=== PATIENT | female | born 2000 | race Caucasian/White ===

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

== ENCOUNTER 2021-09-22 18:23 | Inpatient (IN) ==
--- NOTE | 2021-09-22 18:41 | Emergency Department Note ---
Impression & Plan Depression with anxiety ADMIT ED Provider Note HPI: The patient is a 20-year-old female who presents the emergency department with a chief complaint of increasing anxiety and depression. Patient states that she did have a suicide attempt on Monday, patient states she took "a handful of my Zoloft". Patient states that she did not suffer any ill effects from this. Benjamin cheatham states she had a discussion with her boyfriend today about her depression and decided to come to the emergency department to seek help if she feels that it is getting worse. She denies any current suicidal thoughts but does admit to the suicide attempt this past Monday. On arrival here to the ED the patient is calm and cooperative, she is in no acute distress. She does also admit to some self injures behavior, states that she cuts her upper legs as a coping mechanism at times. She states she was doing this earlier today. ROS: -Psychiatric: Anxiety and depression, recent suicide attempt *10 point review systems was conducted and is otherwise negative unless stated above *Outpatient medications and allergy history reviewed PE: General: Alert, NAD HEENT: Normocephalic, atraumatic Eyes: Extraocular eye movement is intact, no scleral erythema Pulmonary: Clear to auscultation bilaterally, no wheezing Cardio: Regular rate and rhythm GI: Abdomen is soft, nontender : No suprapubic tenderness MSK: No evidence of trauma or malformation of the extremities, no edema Skin: No evidence of rash Neuro: Alert, no focal deficits Psychiatric: Cooperative Medical Decision Making: Patient presented to the emergency department with a chief complaint of increasing anxiety and depression, she states that she did have a suicide attempt several days ago. Patient was medically cleared here in the ED for psychiatric/case management assessment, patient was determined appropriate for inpatient voluntary psychiatric care to which the patient stated her preference. She was able to be placed here at this facility [facility]. Patient was transferred to [facility]. in stable condition for further management of anxiety, depression, and recent suicide attempt. Diagnosis: 1. Anxiety/depression 2. Recent suicide attempt Disposition: Admission Neno Sawyer DO Emergency Medicine Past Med/Surg History Medical History (Updated 09/23/21 @ 00:04 by Neno Sawyer DO) No chronic diseases present Surgical History (Updated 05/14/18 @ 00:20 by Keyur Shea PA-C) No significant past surgical history Social History Smoking Status: Never smoker Feels Safe at Home: Yes Allergies Allergies Allergy/AdvReac Type Severity Reaction Status Date / Time No Known Allergies Allergy Verified 09/22/21 18:50 Home Meds Home Medications Medication Instructions Recorded Confirmed sertraline 100 mg tablet 100 mg PO DAILY 09/22/21 09/22/21 Results & Data (ED) Vital Signs Vital Signs - 24 hr 09/22/21 18:27 09/22/21 20:16 Temperature 36.5 C Temperature Source Temporal Artery Scan Pulse Rate 98 H Pulse Rate [Finger] 81 Respiratory Rate 16 17 Blood Pressure 117/71 Blood Pressure [Right Arm] 133/79 Blood Pressure Mean 86 Blood Pressure Mean [Right Arm] 97 Pulse Oximetry 97 97 Oxygen Delivery Method Room Air Sepsis Recent Fever Within 48 Hours No Sepsis New/Unexplained Change in Mental Status N/A Sepsis Action Taken by Nursing No Action Required Laboratory Data Result diagrams: 09/22/21 18:45 09/22/21 18:45 Lab Results 09/22/21 09/22/21 09/22/21 Range/Units 18:45 18:45 18:45 WBC 6.90 (4.8-10.8) K/ul RBC 4.46 (3.93-5.22) M/uL Hgb 14.1 (12.0-16.0) g/dl Hct 42.4 (34.1-44.9) % MCV 95.1 (80.0-100.0) fL MCH 31.6 (25.0-34.0) pg MCHC 33.3 (32.0-36.0) g/dL RDW Std Deviation 47.2 H (36.4-46.3) fL RDW Coeff of Ronaldo 13.6 (11.5-14.5) % Plt Count 314 (130-400) K/uL MPV 9.7 (9.4-12.3) fL Immature Gran % (Auto) 0.3 % Neut % (Auto) 61.7 % Lymph % (Auto) 28.8 % [place] % (Auto) 8.1 % Eos % (Auto) 0.7 % Baso % (Auto) 0.4 % Neut # (Auto) 4.25 (1.4-6.5) K/uL Lymph # (Auto) 1.99 (1.2-3.4) K/uL [place] # (Auto) 0.56 (0.24-0.82) K/uL Eos # (Auto) 0.05 (0-0.50) K/uL Baso # (Auto) 0.03 (0-0.2) K/uL Immature Gran # (Auto) 0.02 (0.00-0.02) K/uL Sodium 141 (136-145) mmol/L Potassium 4.0 (3.5-5.1) mmol/L Chloride 105 (98-107) mmol/L Carbon Dioxide 28 (21-32) mmol/L Anion Gap 8 (3-11) BUN 12 (6-23) mg/dl Creatinine 0.80 (0.6-1.2) mg/dl Est Cr Clr Drug Dosing Not Reportable Est GFR ( Amer) 123.0 ml/min Est GFR (Non-Af Amer) 106.1 ml/min BUN/Creatinine Ratio 15.0 (10-20) Glucose 85 (70-99(Fasting)) mg/dl Calcium 9.6 (8.5-10.1) mg/dl Total Bilirubin 0.4 (0.2-1.0) mg/dl AST 13 (13-39) U/L ALT 12 (7-52) U/L Alkaline Phosphatase 58 (34-104) U/L Total Protein 7.9 (6.0-8.3) gm/dl Albumin 4.4 (3.4-5.0) gm/dl Globulin 3.5 (2.5-4.0) gm/dl Albumin/Globulin Ratio 1.3 (0.9-2) TSH 2.531 (0.300-4.500) uIu/ml Urine Color Urine Appearance (Clear) Urine pH (4.5-7.5) Ur Specific [place] (1.000-1.030) Urine Protein (Negative) Urine Glucose (UA) (Negative) Urine Ketones (Negative) Urine Blood (Negative) Urine Nitrite (Negative) Urine Bilirubin (Negative) Urine Urobilinogen (Negative) Ur Leukocyte Esterase (Negative) POC Ur Test (NEG) Salicylates (3.0-30) mg/dl Urine Opiates Screen (Neg) Ur Methadone, Qual (Neg) Acetaminophen (10-30) ug/ml Urine Barbiturates (Neg) Ur Phencyclidine (PCP) (Neg) U Amphetamin/Meth Scrn (Neg) MDMA (Ecstasy) Screen (Neg) U Benzodiazepines Scrn (Neg) Ur Cocaine Metabolite (Neg) U Marijuana (THC) Screen (Neg) Ethyl Alcohol mg/dL (<10.0) mg/dl SARS-CoV-2, RNA, NAAT (NEGATIVE) 09/22/21 09/22/21 09/22/21 Range/Units 18:45 18:45 18:47 WBC (4.8-10.8) K/ul RBC (3.93-5.22) M/uL Hgb (12.0-16.0) g/dl Hct (34.1-44.9) % MCV (80.0-100.0) fL MCH (25.0-34.0) pg MCHC (32.0-36.0) g/dL RDW Std Deviation (36.4-46.3) fL RDW Coeff of Ronaldo (11.5-14.5) % Plt Count (130-400) K/uL MPV (9.4-12.3) fL Immature Gran % (Auto) % Neut % (Auto) % Lymph % (Auto) % [place] % (Auto) % Eos % (Auto) % Baso % (Auto) % Neut # (Auto) (1.4-6.5) K/uL Lymph # (Auto) (1.2-3.4) K/uL [place] # (Auto) (0.24-0.82) K/uL Eos # (Auto) (0-0.50) K/uL Baso # (Auto) (0-0.2) K/uL Immature Gran # (Auto) (0.00-0.02) K/uL Sodium (136-145) mmol/L Potassium (3.5-5.1) mmol/L Chloride (98-107) mmol/L Carbon Dioxide (21-32) mmol/L Anion Gap (3-11) BUN (6-23) mg/dl Creatinine (0.6-1.2) mg/dl Est Cr Clr Drug Dosing Est GFR ( Amer) ml/min Est GFR (Non-Af Amer) ml/min BUN/Creatinine Ratio (10-20) Glucose (70-99(Fasting)) mg/dl Calcium (8.5-10.1) mg/dl Total Bilirubin (0.2-1.0) mg/dl AST (13-39) U/L ALT (7-52) U/L Alkaline Phosphatase (34-104) U/L Total Protein (6.0-8.3) gm/dl Albumin (3.4-5.0) gm/dl Globulin (2.5-4.0) gm/dl Albumin/Globulin Ratio (0.9-2) TSH (0.300-4.500) uIu/ml Urine Color Yellow Urine Appearance Clear (Clear) Urine pH 6.5 (4.5-7.5) Ur Specific [place] 1.024 (1.000-1.030) Urine Protein Negative (Negative) Urine Glucose (UA) Negative (Negative) Urine Ketones Negative (Negative) Urine Blood Negative (Negative) Urine Nitrite Negative (Negative) Urine Bilirubin Negative (Negative) Urine Urobilinogen Negative (Negative) Ur Leukocyte Esterase Negative (Negative) POC Ur Test (NEG) Salicylates < 3.0 L (3.0-30) mg/dl Urine Opiates Screen (Neg) Ur Methadone, Qual (Neg) Acetaminophen < 3 L (10-30) ug/ml Urine Barbiturates (Neg) Ur Phencyclidine (PCP) (Neg) U Amphetamin/Meth Scrn (Neg) MDMA (Ecstasy) Screen (Neg) U Benzodiazepines Scrn (Neg) Ur Cocaine Metabolite (Neg) U Marijuana (THC) Screen (Neg) Ethyl Alcohol mg/dL < 10.0 (<10.0) mg/dl SARS-CoV-2, RNA, NAAT (NEGATIVE) 09/22/21 09/22/21 09/22/21 Range/Units 18:47 18:47 18:47 WBC (4.8-10.8) K/ul RBC (3.93-5.22) M/uL Hgb (12.0-16.0) g/dl Hct (34.1-44.9) % MCV (80.0-100.0) fL MCH (25.0-34.0) pg MCHC (32.0-36.0) g/dL RDW Std Deviation (36.4-46.3) fL RDW Coeff of Ronaldo (11.5-14.5) % Plt Count (130-400) K/uL MPV (9.4-12.3) fL Immature Gran % (Auto) % Neut % (Auto) % Lymph % (Auto) % [place] % (Auto) % Eos % (Auto) % Baso % (Auto) % Neut # (Auto) (1.4-6.5) K/uL Lymph # (Auto) (1.2-3.4) K/uL [place] # (Auto) (0.24-0.82) K/uL Eos # (Auto) (0-0.50) K/uL Baso # (Auto) (0-0.2) K/uL Immature Gran # (Auto) (0.00-0.02) K/uL Sodium (136-145) mmol/L Potassium (3.5-5.1) mmol/L Chloride (98-107) mmol/L Carbon Dioxide (21-32) mmol/L Anion Gap (3-11) BUN (6-23) mg/dl Creatinine (0.6-1.2) mg/dl Est Cr Clr Drug Dosing Est GFR ( Amer) ml/min Est GFR (Non-Af Amer) ml/min BUN/Creatinine Ratio (10-20) Glucose (70-99(Fasting)) mg/dl Calcium (8.5-10.1) mg/dl Total Bilirubin (0.2-1.0) mg/dl AST (13-39) U/L ALT (7-52) U/L Alkaline Phosphatase (34-104) U/L Total Protein (6.0-8.3) gm/dl Albumin (3.4-5.0) gm/dl Globulin (2.5-4.0) gm/dl Albumin/Globulin Ratio (0.9-2) TSH (0.300-4.500) uIu/ml Urine Color Urine Appearance (Clear) Urine pH (4.5-7.5) Ur Specific [place] (1.000-1.030) Urine Protein (Negative) Urine Glucose (UA) (Negative) Urine Ketones (Negative) Urine Blood (Negative) Urine Nitrite (Negative) Urine Bilirubin (Negative) Urine Urobilinogen (Negative) Ur Leukocyte Esterase (Negative) POC Ur Test NEG (NEG) Salicylates (3.0-30) mg/dl Urine Opiates Screen Neg (Neg) Ur Methadone, Qual Neg (Neg) Acetaminophen (10-30) ug/ml Urine Barbiturates Neg (Neg) Ur Phencyclidine (PCP) Neg (Neg) U Amphetamin/Meth Scrn Neg (Neg) MDMA (Ecstasy) Screen Neg (Neg) U Benzodiazepines Scrn Neg (Neg) Ur Cocaine Metabolite Neg (Neg) U Marijuana (THC) Screen Neg (Neg) Ethyl Alcohol mg/dL (<10.0) mg/dl SARS-CoV-2, RNA, NAAT NEGATIVE (NEGATIVE) Discharge Plan Visit Data Chief Complaint: Mental Health Evaluation Stated Complaint: REF BY , SUICIDE, CUTTING SELF ED Provider: Neno Sawyer Discharge Problem: Depression with anxiety Patient Disposition: Admitted As Inpatient Discharge Instructions Interventions: ED Discharge Assessment Last Done: 09/22/21 22:44
[2021-09-22 18:59] LABS: Basophils # (auto) 0.03 K/uL (0-0.2); Basophils % (auto) 0.4 %; Eosinophils # (auto) 0.05 K/uL (0-0.50); Eosinophils % (auto) 0.7 %; Hematocrit (blood only) 42.4 % (34.1-44.9); Hemoglobin 14.1 g/dl (12.0-16.0); Immature Granulocytes # (auto) 0.02 K/uL (0.00-0.02); Immature Granulocytes % (auto) 0.3 %; Lymphocytes # (auto) 1.99 K/uL (1.2-3.4); Lymphocytes % (auto) 28.8 %; Mean Corpuscular Hemoglobin 31.6 pg (25.0-34.0); Mean Corpuscular Hgb Conc 33.3 g/dL (32.0-36.0); Mean Corpuscular Volume 95.1 fL (80.0-100.0); Mean Platelet Volume 9.7 fL (9.4-12.3); Monocytes # (auto) 0.56 K/uL (0.24-0.82); Monocytes % (auto) 8.1 %; Neutrophils # (auto) 4.25 K/uL (1.4-6.5); Neutrophils % (auto) 61.7 %; Platelet Count 314 K/uL (130-400); RDW Coefficient of Variation 13.6 % (11.5-14.5); RDW Standard Deviation 47.2 fL (36.4-46.3); Red Blood Count 4.46 M/uL (3.93-5.22)
[2021-09-22 19:28] LABS: Acetaminophen < 3 ug/ml (10-30); Alanine Aminotransferase 12 U/L (7-52); Albumin Globulin Ratio 1.3 (0.9-2); Albumin Level 4.4 gm/dl (3.4-5.0); Alkaline Phosphatase 58 U/L (34-104); Anion Gap 8 (3-11); Aspartate Aminotransferase 13 U/L (13-39); Bilirubin,Total 0.4 mg/dl (0.2-1.0); Blood Urea Nitrogen 12 mg/dl (6-23); Calcium 9.6 mg/dl (8.5-10.1); Carbon Dioxide 28 mmol/L (21-32); Chloride 105 mmol/L (98-107); Est GFR (Non-African American) 106.1 ml/min; Globulin 3.5 gm/dl (2.5-4.0); Glucose 85 mg/dl (70-99(Fasting)); Salicylate < 3.0 mg/dl (3.0-30); Sodium 141 mmol/L (136-145); Total Protein 7.9 gm/dl (6.0-8.3)
[2021-09-22 19:39] LABS: Appearance Urine Clear (Clear); Bilirubin Urine Negative (Negative); Blood Urine Negative (Negative); Color Urine Yellow; Glucose Urine UA Negative (Negative); Ketones Urine Negative (Negative); Leukocyte Esterase Urine Negative (Negative); Nitrite Urine Negative (Negative); Protein Urine Negative (Negative); Specific Gravity Urine 1.024 (1.000-1.030); Urobilinogen Urine Negative (Negative); pH Urine 6.5 (4.5-7.5)
[2021-09-22 20:07] LABS: Amphetamines+Metham, Urine Neg (Neg); Barbiturates, Urine Neg (Neg); Benzodiazepine, Urine Neg (Neg); Cocaine, Urine Neg (Neg); MDMA (Ecstacy), Urine Neg (Neg); Methadone, Urine Neg (Neg); Opiate, Urine Neg (Neg); Phencyclidine, Urine Neg (Neg)
[2021-09-22] MEDS ORDERED: ACETAMINOPHEN 325 MG TAB PO PRN (22:28)
[2021-09-22] MEDS ORDERED: BISMUTH SUBSALICYLATE LIQD 236 ML PO PRN (22:28)
[2021-09-22] MEDS ORDERED: ALUMINUM/MAGNESIUM SUSP 30 ML UDC PO PRN (22:28)
[2021-09-22] MEDS ORDERED: MAGNESIUM HYDROXIDE SUSP 30 ML UDC PO PRN (22:28)
[2021-09-22] MEDS ORDERED: SODIUM CHLORIDE 0.65% NA SOLN 45 ML (OCEAN) PRN (22:28)
[2021-09-22] MEDS ORDERED: hydrOXYzine HCl 25 MG TAB PO PRN (22:28)
--- NOTE | 2021-09-23 08:38 | History & Physical ---
Date of Service September 23, 2021 Impression / Recommendations Impression 20 yo female s/p ingestion of SSRI, no evidence of serotonin syndrome in ED. Was medically cleared for inpatient psych. (1) Depression with anxiety: Plan The patient was admitted to the [facility] ([facility] mental health unit) on q15 min checks (behavioral with suicide precautions) for safety. The patient will participate in group, recreational, and milieu therapies and will be offered additional individual and family sessions as clinically appropriate. EKG to ensure normal QTc prior to consideration for another antidepressant. Risks/benefits/alternatives reviewed re: Lexapro for depression rather than resuming and increasing Zoloft as she OD on it. Discussion included but was not limited to FDA warnings re: SI. Inventory Assets Strengths: sought help, attending school Needs: improve coping skills, outpatient therapy Suicide Risk Level Suicide Risk Level: High-Moderate (q15 min suicide checks) Risk Factors Assessment Male: No Do You Have Access To A Gun?: No Previous Attempt: No Previous Psychiatric Hospitalization: No Protective Factors Assessment : No Employed: Yes ([employer]) Stable Relationships: Yes Psychiatric History Identifying Data LANDY MATTA is a 20-year-old F who currently lives in [place] and was admitted on 09/22/21 22:28 on a 201 voluntary commitment after admitting to a suicide attempt on 09/20/21. Chief Complaint "I took a handful of Zoloft" History of Present Illness ED note estimates patient took 20 of 100 mg tabs of Zoloft on 09/20/21 as a suicide attempt and didn't tell her boyfriend until later when she was still feeling depressed. He encouraged her to come to the ED for assessment. She also made a superficial cut to her leg after not engaging in SIB for several years. Her sleep has been disrupted. She has been in bed alot, much of the last 2 days and has been unable to attend her classes at [employer]. Reported she really hadn't eaten or drank much for 5 days leading up to the attempt. She reports past cutting was for stress relief. She felt that Zoloft was helpful initially but "stopped working" a few months ago. She reports a few days where she feels happy for "no reason" but likely a euthymic mood after "depression since age 13, not diagnosed until 18 yo"; No dayna but sister reportedly carries a bipolar diagnosis. Past Psychiatric History Current Psychiatric Diagnosis: Depression; Anxiety Outpatient Services: meds through PCP Dr. Doran Previous Psych Admissions: none Do You Have Access To A Gun?: No History of Previous Suicide Attempt: No Past Medication Trials: no Allergies Allergy/AdvReac Type Severity Reaction Status Date / Time No Known Allergies Allergy Verified 09/22/21 18:50 Home Medications Medication Instructions Recorded Confirmed Type sertraline 100 mg tablet 100 mg PO DAILY 09/22/21 09/22/21 History Family History Family History of: Depression and Anxiety Alcohol History Hx of Alcohol Use Over the Past 12 Months: Yes (1-2 drinks monthly or less) AUDIT Total Score: 1 Smoking Use Have You Smoked or Used Tobacco Products in the Last 30 Days: No Smoking Status: Never smoker Substance History Hx of Prescription Med Misuse Over the Past 12 Months: No Hx of Over the Counter Med Misuse Over the Past 12 Months: No Hx of Inhalent Misuse Over the Past 12 Months: No Hx of Organic Substance Use Over the Past 12 Months: Yes (marijuana "sometimes") Hx of Illegal Substances/Street Drug Use Over Past 12 Months: No Problems as a Result of Past Substance Use: None Identified Personal History Living Arrangements: Home Highest Grade Completed: [employer] Employment Status: Student Marital Status: Single Number Of Children: 0 Beliefs That Will Affect Care: None Current Legal Problems: No Hx Traumatic Life Events: No Patient History Medical History No chronic diseases present Surgical History No significant past surgical history Social History Smoking Status: Never smoker Preferred Language: Yoruba Communication Ability: Effective Campus Administrative Assistant Required: No Beliefs That Will Affect Care: None Feels Safe at Home: Yes Assistive Devices: Glasses Review of Systems Review of Systems: All systems reviewed & are unremarkable except as noted in HPI & below Physical Exam Psychiatric: Orientation: alert and oriented x 3 Apperance: appropriately dressed and appropriately groomed Eye Contact: good eye contact Motor Behavior: no abnormal motor movements Speech: normal rate/rhythm/volume of s peech Affect: + depressed affect Mood: + depressed mood Thought Process: goal directed thought process Thought Content: reality based without delusions Suicidal Thoughts: denies suicidal thoughts Homicidal Thoughts: denies homicidal thoughts Hallucinations: no auditory hallucinations and no visual hallucinations Cognition: attention grossly intact and language grossly intact Estimated Intelligence: consistent with education level Insight: + limited insight Judgement: + limited judgement Vital Signs (Past 24 Hours): Last Vital Signs Temp 36.6 C 09/23/21 06:41 Pulse 82 09/23/21 06:42 Resp 16 09/23/21 06:41 BP 95/60 L 09/23/21 06:42 Pulse Ox 97 09/22/21 20:16 O2 Del Method 09/22/21 18:27 Exam Statement: A physical exam was performed in the ED by Dr. Sawyer for the purposes of medical clearance. I accept that physical as correct and adequate for the purposes of the inpatient physical exam. Results & Data ([facility]) Laboratory Results Laboratory Results - last 24 hr 09/22/21 09/22/21 09/22/21 18:45 18:45 18:45 WBC 6.90 RBC 4.46 Hgb 14.1 Hct 42.4 MCV 95.1 MCH 31.6 MCHC 33.3 RDW Std Deviation 47.2 H RDW Coeff of Ronaldo 13.6 Plt Count 314 MPV 9.7 Immature Gran % (Auto) 0.3 Neut % (Auto) 61.7 Lymph % (Auto) 28.8 Berks % (Auto) 8.1 Eos % (Auto) 0.7 Baso % (Auto) 0.4 Neut # (Auto) 4.25 Lymph # (Auto) 1.99 Berks # (Auto) 0.56 Eos # (Auto) 0.05 Baso # (Auto) 0.03 Immature Gran # (Auto) 0.02 Sodium 141 Potassium 4.0 Chloride 105 Carbon Dioxide 28 Anion Gap 8 BUN 12 Creatinine 0.80 Est Cr Clr Drug Dosing Not Reportable Est GFR ( Amer) 123.0 Est GFR (Non-Af Amer) 106.1 BUN/Creatinine Ratio 15.0 Glucose 85 Calcium 9.6 Total Bilirubin 0.4 AST 13 ALT 12 Alkaline Phosphatase 58 Total Protein 7.9 Albumin 4.4 Globulin 3.5 Albumin/Globulin Ratio 1.3 TSH 2.531 Urine Color Urine Appearance Urine pH Ur Specific Lottie Urine Protein Urine Glucose (UA) Urine Ketones Urine Blood Urine Nitrite Urine Bilirubin Urine Urobilinogen Ur Leukocyte Esterase POC Ur Test Salicylates Urine Opiates Screen Ur Methadone, Qual Acetaminophen Urine Barbiturates Ur Phencyclidine (PCP) U Amphetamin/Meth Scrn MDMA (Ecstasy) Screen U Benzodiazepines Scrn Ur Cocaine Metabolite U Marijuana (THC) Screen Ethyl Alcohol mg/dL SARS-CoV-2, RNA, NAAT 09/22/21 09/22/21 09/22/21 18:45 18:45 18:47 WBC RBC Hgb Hct MCV MCH MCHC RDW Std Deviation RDW Coeff of Ronaldo Plt Count MPV Immature Gran % (Auto) Neut % (Auto) Lymph % (Auto) Berks % (Auto) Eos % (Auto) Baso % (Auto) Neut # (Auto) Lymph # (Auto) Berks # (Auto) Eos # (Auto) Baso # (Auto) Immature Gran # (Auto) Sodium Potassium Chloride Carbon Dioxide Anion Gap BUN Creatinine Est Cr Clr Drug Dosing Est GFR ( Amer) Est GFR (Non-Af Amer) BUN/Creatinine Ratio Glucose Calcium Total Bilirubin AST ALT Alkaline Phosphatase Total Protein Albumin Globulin Albumin/Globulin Ratio TSH Urine Color Yellow Urine Appearance Clear Urine pH 6.5 Ur Specific Lottie 1.024 Urine Protein Negative Urine Glucose (UA) Negative Urine Ketones Negative Urine Blood Negative Urine Nitrite Negative Urine Bilirubin Negative Urine Urobilinogen Negative Ur Leukocyte Esterase Negative POC Ur Test Salicylates < 3.0 L Urine Opiates Screen Ur Methadone, Qual Acetaminophen < 3 L Urine Barbiturates Ur Phencyclidine (PCP) U Amphetamin/Meth Scrn MDMA (Ecstasy) Screen U Benzodiazepines Scrn Ur Cocaine Metabolite U Marijuana (THC) Screen Ethyl Alcohol mg/dL < 10.0 SARS-CoV-2, RNA, NAAT 09/22/21 09/22/21 09/22/21 18:47 18:47 18:47 WBC RBC Hgb Hct MCV MCH MCHC RDW Std Deviation RDW Coeff of Ronaldo Plt Count MPV Immature Gran % (Auto) Neut % (Auto) Lymph % (Auto) Berks % (Auto) Eos % (Auto) Baso % (Auto) Neut # (Auto) Lymph # (Auto) Berks # (Auto) Eos # (Auto) Baso # (Auto) Immature Gran # (Auto) Sodium Potassium Chloride Carbon Dioxide Anion Gap BUN Creatinine Est Cr Clr Drug Dosing Est GFR ( Amer) Est GFR (Non-Af Amer) BUN/Creatinine Ratio Glucose Calcium Total Bilirubin AST ALT Alkaline Phosphatase Total Protein Albumin Globulin Albumin/Globulin Ratio TSH Urine Color Urine Appearance Urine pH Ur Specific Lottie Urine Protein Urine Glucose (UA) Urine Ketones Urine Blood Urine Nitrite Urine Bilirubin Urine Urobilinogen Ur Leukocyte Esterase POC Ur Test NEG Salicylates Urine Opiates Screen Neg Ur Methadone, Qual Neg Acetaminophen Urine Barbiturates Neg Ur Phencyclidine (PCP) Neg U Amphetamin/Meth Scrn Neg MDMA (Ecstasy) Screen Neg U Benzodiazepines Scrn Neg Ur Cocaine Metabolite Neg U Marijuana (THC) Screen Neg Ethyl Alcohol mg/dL SARS-CoV-2, RNA, NAAT NEGATIVE Current Inpatient Medications Current Inpatient Medications: Current Inpatient Medications Acetaminophen (Acetaminophen 325 Mg Tab) 650 mg PO Q4H PRN PRN Reason: Headache or Minor Fever Stop: 10/22/21 22:27 Al Hydrox/Mg Hydrox/Simethicone (Aluminum/Magnesium Susp 30 Ml Udc) 30 ml PO Q4H PRN PRN Reason: GI Upset Stop: 10/22/21 22:27 Bismuth Subsalicylate (Bismuth Subsalicylate Liqd 236 Ml) 15 ml PO PRN PRN PRN Reason: Loose Stool Stop: 10/22/21 22:27 Hydroxyzine HCl (Hydroxyzine Hcl 25 Mg Tab) 50 mg PO HSZ PRN PRN Reason: Insomnia Stop: 10/22/21 22:27 Hydroxyzine HCl (Hydroxyzine Hcl 25 Mg Tab) 25 mg PO Q4H PRN PRN Reason: Anxiety Stop: 10/22/21 22:27 Magnesium Hydroxide (Magnesium Hydroxide Susp 30 Ml Udc) 30 ml PO DAILY PRN PRN Reason: Constipation Stop: 10/22/21 22:27 Sodium Chloride (Sodium Chloride 0.65% Na Soln 45 Ml (Gray)) 1 - 2 sprays NA PRN PRN PRN Reason: Nasal Dryness/Congestion Stop: 10/22/21 22:27
--- NOTE | 2021-09-24 06:36 | Electrocardiogram Report ---
Test Reason : Blood Pressure : / mmHG Vent. Rate : 073 BPM Atrial Rate : 073 BPM P-R Int : 130 ms QRS Dur : 086 ms QT Int : 370 ms P-R-T Axes : 056 076 045 degrees QTc Int : 407 ms Normal sinus rhythm Normal ECG When compared with ECG of 09-JUL-2016 14:05, PREVIOUS ECG IS PRESENT Confirmed by Song Llanes ([id number]) on 09/23/2021 5:23:25 PM Referred By: Silvina Sheppard Confirmed By:Angel Llanes
[2021-09-24] MEDS: ESCITALOPRAM OXALATE 10 MG TAB PO SCH (09:21)
--- NOTE | 2021-09-24 11:32 | Psychiatric Progress Note ---
Date of Service September 24, 2021 Impression / Recommendations Impression 20 yo female s/p ingestion of SSRI, no evidence of serotonin syndrome in ED. Was medically cleared for inpatient psych. (1) Depression with anxiety: Plan 09/24/21: continue current medication and tx plan, titration of Lexapro likely tomorrow. 09/23/21: The patient was admitted to the [facility] ([facility] mental health unit) on q15 min checks (behavioral with suicide precautions) for safety. The patient will participate in group, recreational, and milieu therapies and will be offered additional individual and family sessions as clinically appropriate. EKG to ensure normal QTc prior to consideration for another antidepressant. Risks/benefits/alternatives reviewed re: Lexapro for depression rather than resuming and increasing Zoloft as she OD on it. Discussion included but was not limited to FDA warnings re: SI. Inventory Assets Strengths: sought help, attending school Needs: improve coping skills, outpatient therapy Suicide Risk Level Suicide Risk Level: High-Moderate (q15 min suicide checks) Risk Factors Assessment Male: No Do You Have Access To A Gun?: No Previous Attempt: No Previous Psychiatric Hospitalization: No Protective Factors Assessment : No Employed: Yes ([employer]) Stable Relationships: Yes Interval History Identifying Information LANDY MATTA is a 20-year-old F who currently lives in [place] and was admitted on 09/22/21 22:28 on a 201 voluntary commitment after admitting to a suicide attempt on 09/20/21. Chief Complaint "I'm good I guess, pretty anxious this am" Review of Systems Sleep Information Total Hours of Sleep: 6 Meal Information Percent Meal Consumed - Breakfast: 100 Percent Meal Consumed - Lunch: 100 Percent Meal Consumed - Dinner: 60 Subjective Subjective Patient was seen & assessed and interval progress reviewed with treatment team. Reviewed EKG. participating in groups, appears engaged in treatment. Tolerating first dose of Lexapro. Physical Exam Psychiatric Orientation: alert and oriented x 3 Apperance: appropriately dressed and appropriately groomed Eye Contact: good eye contact Motor Behavior: no abnormal motor movements Speech: normal rate/rhythm/volume of speech Affect: + depressed affect Mood: + depressed mood Thought Process: goal directed thought process Thought Content: reality based without delusions Suicidal Thoughts: denies suicidal thoughts Homicidal Thoughts: denies homicidal thoughts Hallucinations: no auditory hallucinations and no visual hallucinations Cognition: attention grossly intact and language grossly intact Estimated Intelligence: consistent with education level Insight: + limited insight Judgement: + limited judgement Vital Signs (Past 24 Hours) Last Vital Signs Temp 36.5 C 09/24/21 06:43 Pulse 75 09/24/21 06:43 Resp 16 09/24/21 06:43 BP 102/68 09/24/21 06:44 Pulse Ox 97 09/22/21 20:16 O2 Del Method 09/22/21 18:27 Results & Data ([facility]) Current Inpatient Medications Current Inpatient Medications: Current Inpatient Medications Acetaminophen (Acetaminophen 325 Mg Tab) 650 mg PO Q4H PRN PRN Reason: Headache or Minor Fever Stop: 10/22/21 22:27 Al Hydrox/Mg Hydrox/Simethicone (Aluminum/Magnesium Susp 30 Ml Udc) 30 ml PO Q4H PRN PRN Reason: GI Upset Stop: 10/22/21 22:27 Bismuth Subsalicylate (Bismuth Subsalicylate Liqd 236 Ml) 15 ml PO PRN PRN PRN Reason: Loose Stool Stop: 10/22/21 22:27 Escitalopram Oxalate (Escitalopram Oxalate 10 Mg Tab) 5 mg PO QAM ALAYNA Stop: 10/24/21 08:59 Last Admin: 09/24/21 09:21 Dose: 5 mg Hydroxyzine HCl (Hydroxyzine Hcl 25 Mg Tab) 50 mg PO HSZ PRN PRN Reason: Insomnia Stop: 10/22/21 22:27 Hydroxyzine HCl (Hydroxyzine Hcl 25 Mg Tab) 25 mg PO Q4H PRN PRN Reason: Anxiety Stop: 10/22/21 22:27 Magnesium Hydroxide (Magnesium Hydroxide Susp 30 Ml Udc) 30 ml PO DAILY PRN PRN Reason: Constipation Stop: 10/22/21 22:27 Sodium Chloride (Sodium Chloride 0.65% Na Soln 45 Ml ([place])) 1 - 2 sprays NA PRN PRN PRN Reason: Nasal Dryness/Congestion Stop: 10/22/21 22:27 Mental Health & Subst Abuse Tx Therapist Name of Therapist: None Bonderizer Operator Name of Bonderizer Operator: None Post Discharge Appointments Primary Care Physician Name Of Family Doctor: Dr. Catherine, Dr. Sheppard
[2021-09-24] MEDS: hydrOXYzine HCl 25 MG TAB PO PRN (21:22)
[2021-09-25] MEDS: ESCITALOPRAM OXALATE 10 MG TAB PO SCH (08:54)
--- NOTE | 2021-09-25 10:40 | Psychiatric Progress Note ---
Date of Service September 25, 2021 Impression / Recommendations Impression 20 yo female s/p ingestion of SSRI, no evidence of serotonin syndrome in ED. (1) Depression with anxiety: Plan 09/25/21: titrate Lexapro 10 mg daily. Vistaril prn for sleep effective. needs family meeting. 09/24/21: continue current medication and tx plan, titration of Lexapro likely tomorrow. 09/23/21: The patient was admitted to the [facility] ([facility] mental health unit) on q15 min checks (behavioral with suicide precautions) for safety. The patient will participate in group, recreational, and milieu therapies and will be offered additional individual and family sessions as clinically appropriate. EKG to ensure normal QTc prior to consideration for another antidepressant. Risks/benefits/alternatives reviewed re: Lexapro for depression rather than resuming and increasing Zoloft as she OD on it. Discussion included but was not limited to FDA warnings re: SI. Inventory Assets Strengths: sought help, attending school Needs: improve coping skills, outpatient therapy Suicide Risk Level Suicide Risk Level: High-Moderate (q15 min suicide checks) Risk Factors Assessment Male: No Do You Have Access To A Gun?: No Previous Attempt: No Previous Psychiatric Hospitalization: No Protective Factors Assessment : No Employed: Yes ([employer]) Stable Relationships: Yes Interval History Identifying Information LANDY MATTA is a 20-year-old F who currently lives in [place] and was admitted on 09/22/21 22:28 on a 201 voluntary commitment after admitting to a suicide attempt on 09/20/21. Chief Complaint "I don't sleep well at home either." Review of Systems Sleep Information Total Hours of Sleep: 8.25 Meal Information Percent Meal Consumed - Breakfast: 85 Percent Meal Consumed - Lunch: 100 Percent Meal Consumed - Dinner: 100 Subjective Subjective Patient was seen & assessed and interval progress reviewed with nursing and social work. States she slept better last night than night before (took Vistaril). Rated mood as 4 and anxious last night. Physical Exam Psychiatric Orientation: alert and oriented x 3 Apperance: appropriately dressed and appropriately groomed Eye Contact: good eye contact Motor Behavior: no abnormal motor movements Speech: normal rate/rhythm/volume of speech Affect: + depressed affect Mood: + depressed mood Thought Process: goal directed thought process Thought Content: reality based without delusions Suicidal Thoughts: denies suicidal thoughts Homicidal Thoughts: denies homicidal thoughts Hallucinations: no auditory hallucinations and no visual hallucinations Cognition: attention grossly intact and language grossly intact Estimated Intelligence: consistent with education level Insight: + limited insight Judgement: + limited judgement Vital Signs (Past 24 Hours) Last Vital Signs Temp 36.7 C 09/25/21 06:00 Pulse 102 H 09/25/21 06:38 Resp 16 09/25/21 06:00 BP 105/70 09/25/21 06:38 Pulse Ox 97 09/22/21 20:16 O2 Del Method 09/22/21 18:27 Results & Data ([facility]) Current Inpatient Medications Current Inpatient Medications: Current Inpatient Medications Acetaminophen (Acetaminophen 325 Mg Tab) 650 mg PO Q4H PRN PRN Reason: Headache or Minor Fever Stop: 10/22/21 22:27 Al Hydrox/Mg Hydrox/Simethicone (Aluminum/Magnesium Susp 30 Ml Udc) 30 ml PO Q4H PRN PRN Reason: GI Upset Stop: 10/22/21 22:27 Bismuth Subsalicylate (Bismuth Subsalicylate Liqd 236 Ml) 15 ml PO PRN PRN PRN Reason: Loose Stool Stop: 10/22/21 22:27 Escitalopram Oxalate (Escitalopram Oxalate 10 Mg Tab) 10 mg PO QAM ALAYNA Stop: 10/26/21 08:59 Hydroxyzine HCl (Hydroxyzine Hcl 25 Mg Tab) 50 mg PO HSZ PRN PRN Reason: Insomnia Stop: 10/22/21 22:27 Hydroxyzine HCl (Hydroxyzine Hcl 25 Mg Tab) 25 mg PO Q4H PRN PRN Reason: Anxiety Stop: 10/22/21 22:27 Last Admin: 09/24/21 21:22 Dose: 25 mg Magnesium Hydroxide (Magnesium Hydroxide Susp 30 Ml Udc) 30 ml PO DAILY PRN PRN Reason: Constipation Stop: 10/22/21 22:27 Sodium Chloride (Sodium Chloride 0.65% Na Soln 45 Ml ([place])) 1 - 2 sprays NA PRN PRN PRN Reason: Nasal Dryness/Congestion Stop: 10/22/21 22:27 Mental Health & Subst Abuse Tx Psychiatrist Name of Psychiatrist: Teresa Morgan PA-C Psychiatrist's Date of Appointment with Psychiatrist: 10/04/21 Time of Appointment with Psychiatrist: 2:00 PM Psychiatric Appointment Comment: [address] [facility], [place] [address] Therapist Name of Therapist: Brooklynn Quiñonez - Aster Thompson Therapist's Date of Therapist Appointment: 09/28/21 Time of Therapist Appointment: 8:30 AM Therapy Appointment Comment: [address] [facility], [address], [place] [address] Implementation Project Coordinator Name of Implementation Project Coordinator: None Post Discharge Appointments Primary Care Physician Name Of Family Doctor: Dr. Catherine, Dr. Sheppard
[2021-09-25] MEDS: hydrOXYzine HCl 25 MG TAB PO PRN (21:11)
[2021-09-26] MEDS: ESCITALOPRAM OXALATE 10 MG TAB PO SCH (08:34)
--- NOTE | 2021-09-26 17:30 | Psychiatric Progress Note ---
Date of Service September 26, 2021 Impression / Recommendations Impression 20 yo female s/p overdose of SSRI, no evidence of serotonin syndrome in ED. Diagnostically discussed history of depression starting at a young age, periods of depression and brief periods of elevated mood possibly consistent with hypomania and family history of sister with BPAD so possible BPAD type II versus MDD with brief mood elevations. 09/26/21: Reviewed interim progress per Dr. Park. Tolerating titration of escitalopram without side effects. Continues to have depression but no SI and increasingly future-oriented with more behavioral activation. (1) Depression with anxiety: Plan 09/26/21: Continue with current medications and tx plan. Had family meeting. Reviewed potential risks for mood elevation with SSRI if BPAD II is part of diagnostic picture but previously tolerated sertraline and discussed option for mood stabilizer in future if needed and she agrees she could discuss this with outpatient providers. 09/25/21: titrate Lexapro 10 mg daily. Vistaril prn for sleep effective. needs family meeting. 09/24/21: continue current medication and tx plan, titration of Lexapro likely tomorrow. 09/23/21: The patient was admitted to the [facility] ([facility] mental health unit) on q15 min checks (behavioral with suicide precautions) for safety. The patient will participate in group, recreational, and milieu therapies and will be offered additional individual and family sessions as clinically appropriate. EKG to ensure normal QTc prior to consideration for another antidepressant. Risks/benefits/alternatives reviewed re: Lexapro for depression rather than resuming and increasing Zoloft as she OD on it. Discussion included but was not limited to FDA warnings re: SI. Inventory Assets Strengths: sought help, attending school Needs: improve coping skills, outpatient therapy Suicide Risk Level Suicide Risk Level: Moderate (q15 min suicide checks) Suicide Risk Level Comments: Suicide attempt prior to admission and depression but denies SI and feels safe on the unit and agrees to alert staff if she develops SI or feels unable to remain safe. Risk Factors Assessment Male: No Do You Have Access To A Gun?: No Previous Attempt: No Previous Psychiatric Hospitalization: No Protective Factors Assessment : No Employed: Yes ([employer]) Stable Relationships: Yes Interval History Identifying Information LANDY MATTA is a 20-year-old F who currently lives in [place] and was admitted on 09/22/21 22:28 on a 201 voluntary commitment after admitting to a suicide attempt on 09/20/21. Chief Complaint "My mood is a little better today". Review of Systems Sleep Information Total Hours of Sleep: 7.5 Meal Information Percent Meal Consumed - Breakfast: 75 Percent Meal Consumed - Lunch: 100 Percent Meal Consumed - Dinner: 100 Subjective Subjective Patient was seen & assessed and interval progress reviewed with treatment team nursing and social work. She notes her mood continues to improve and denies any side effects from higher dose of lexapro today. Reviewed severity of depression symptoms prior to admission, isolated in her room for two days and missed work and classes, and that she feels she is improving here as she's been out of her room and attending groups. No SI. Had family meeting. More future-oriented including classes starting again in 1 week. Physical Exam Psychiatric Orientation: alert and oriented x 3 Apperance: appropriately dressed and appropriately groomed Eye Contact: good eye contact Motor Behavior: no abnormal motor movements Speech: normal rate/rhythm/volume of speech Affect: + constricted affect Mood: + depressed mood Thought Process: goal directed thought process Thought Content: reality based without delusions Suicidal Thoughts: denies suicidal thoughts Homicidal Thoughts: denies homicidal thoughts Hallucinations: no auditory hallucinations and no visual hallucinations Cognition: attention grossly intact and language grossly intact Estimated Intelligence: consistent with education level Insight: + fair insight Judgement: + fair judgement Vital Signs (Past 24 Hours) Last Vital Signs Temp 36.6 C 09/26/21 06:00 Pulse 84 09/26/21 06:36 Resp 16 09/26/21 06:00 BP 98/63 L 09/26/21 06:36 Pulse Ox 97 09/22/21 20:16 O2 Del Method 09/22/21 18:27 Results & Data ([facility]) Current Inpatient Medications Current Inpatient Medications: Current Inpatient Medications Acetaminophen (Acetaminophen 325 Mg Tab) 650 mg PO Q4H PRN PRN Reason: Headache or Minor Fever Stop: 10/22/21 22:27 Al Hydrox/Mg Hydrox/Simethicone (Aluminum/Magnesium Susp 30 Ml Udc) 30 ml PO Q4H PRN PRN Reason: GI Upset Stop: 10/22/21 22:27 Bismuth Subsalicylate (Bismuth Subsalicylate Liqd 236 Ml) 15 ml PO PRN PRN PRN Reason: Loose Stool Stop: 10/22/21 22:27 Escitalopram Oxalate (Escitalopram Oxalate 10 Mg Tab) 10 mg PO QAM ALAYNA Stop: 10/26/21 08:59 Last Admin: 09/26/21 08:34 Dose: 10 mg Hydroxyzine HCl (Hydroxyzine Hcl 25 Mg Tab) 50 mg PO HSZ PRN PRN Reason: Insomnia Stop: 10/22/21 22:27 Hydroxyzine HCl (Hydroxyzine Hcl 25 Mg Tab) 25 mg PO Q4H PRN PRN Reason: Anxiety Stop: 10/22/21 22:27 Last Admin: 09/25/21 21:11 Dose: 25 mg Magnesium Hydroxide (Magnesium Hydroxide Susp 30 Ml Udc) 30 ml PO DAILY PRN PRN Reason: Constipation Stop: 10/22/21 22:27 Sodium Chloride (Sodium Chloride 0.65% Na Soln 45 Ml (Wood)) 1 - 2 sprays NA PRN PRN PRN Reason: Nasal Dryness/Congestion Stop: 10/22/21 22:27 Mental Health & Subst Abuse Tx Psychiatrist Name of Psychiatrist: Teresa Morgan PA-C Psychiatrist's Date of Appointment with Psychiatrist: 10/04/21 Time of Appointment with Psychiatrist: 2:00 PM Psychiatric Appointment Comment: [address] [facility] [id number] Therapist Name of Therapist: Brooklynn Thompson Therapist's Date of Therapist Appointment: 09/28/21 Time of Therapist Appointment: 8:30 AM Therapy Appointment Comment: [address] [facility], [address], [place] [address] Senior Software Tester Name of Senior Software Tester: None Post Discharge Appointments Primary Care Physician Name Of Family Doctor: Dr. Catherine, Dr. Sheppard
[2021-09-27] MEDS: ESCITALOPRAM OXALATE 10 MG TAB PO SCH (08:54)
--- NOTE | 2021-09-27 12:03 | Discharge Summary ---
Date of Service September 27, 2021 History of Present Illness ED note estimates patient took 20 of 100 mg tabs of Zoloft on 09/20/21 as a suicide attempt and didn't tell her boyfriend until later when she was still feeling depressed. He encouraged her to come to the ED for assessment. She also made a superficial cut to her leg after not engaging in SIB for several years. Her sleep has been disrupted. She has been in bed alot, much of the last 2 days and has been unable to attend her classes at [employer]. Reported she really hadn't eaten or drank much for 5 days leading up to the attempt. She reports past cutting was for stress relief. She felt that Zoloft was helpful initially but "stopped working" a few months ago. She reports a few days where she feels happy for "no reason" but likely a euthymic mood after "depression since age 13, not diagnosed until 18 yo"; No dayna but sister reportedly carries a bipolar diagnosis. Physical Exam Vital Signs (Past 24 Hours) Last Vital Signs Temp 36.8 C 09/27/21 06:38 Pulse 73 09/27/21 06:39 Resp 16 09/27/21 06:38 BP 97/63 L 09/27/21 06:39 Pulse Ox 97 09/22/21 20:16 O2 Del Method 09/22/21 18:27 See admission H&P and DOD summary. Principal Diagnosis Major Depressive Disorder, recurrent with anxious distress Psychiatric Data See daily stay summary. In short, patient was engaged with the social/therapeutic milieu of the unit, safety was maintained and the patient was cooperative with care. Medication changes included discontinuation of sertraline and initiation of escitalopram for depression and Vistaril as needed for insomnia and they tolerated this well. A family session was held and safety plan was completed prior to discharge. She actively and insightfully participated in safety planning and in discussions about ways to seek support and recognizing warning signs and utilizing coping skills. Reviewed mobile apps that could be used for additional ways to have their safety plan and contacts easily available should thoughts of SI re-emerge in the future. Reviewed importance of seeking emergency care should SI intensify, worsen or should they feel unsafe in the future which they agree to do. On the day of discharge she stated her mood was "really good" and remained future-oriented including seeing family, going to [employer] journaling, starting back at school next week, talking more openly with family at home, seeing her boyfriend and engaging in aftercare appointments for psychiatry, [facility] and group therapy. Day of Discharge Assessment Today the patient voices readiness for discharge. They note improvement in mood and anxiety. They deny thoughts of harm to self or others. Thoughts are organized and they are clinically improved from admission. There is no evidence of psychosis. They improved in the hospital with support and medication adjustments. They agree to take medications as prescribed and keep follow-up appointments. At the time of the discharge they are deemed to be stable and appropriate for outpatient level of care. They are not deemed to be at imminent risk of harm to self or others. They are aware of emergency and crisis services. Knows to call 911 or go to nearest emergency care center if in a crisis which cannot be handled as an outpatient. Transition of Care Transition Of Care Record: was reviewed with the patient Advance Directives Advance Directives Information Provided: Yes Advance Directives: No Mental Health Advance Directive: No Advance Directives on File: No Living Will: No Power of Waxer: No Advance Directives Reason:: Declines as Mental Health Visit. Suicide Risk Level Suicide Risk Level Comments: Acute risk is low given improvement in mood and denial of SI, lack of access to lethal means, improvement in sleep, hopefulness, improvement in anxiety. Chronic risk is moderate given prior attempt, hx self-harm, mood disorder but also with protective factors. Counseled on ways to reduce acute and chronic risk including engaging with outpatient providers, using safety plan if needed, utilizing supports, taking medication, and using coping skills. Modifiable risk factors of SI and depression were addressed during hospitalization through development of new coping skills, family meeting, safety planning, and medication adjustments. Risk Factors Assessment Male: No Do You Have Access To A Gun?: No Health Problems: No Mental Health Diagnoses: Yes Substance Use Disorders: No Previous Attempt: Yes Family History of Suicide: No Previous Psychiatric Hospitalization: No Hopelessness: No Protective Factors Assessment : No Employed: Yes ([employer]) Stable Relationships: Yes Supportive Family: Yes Discharge Data Lab Results 09/22/21 09/22/21 09/22/21 18:45 18:45 18:45 WBC 6.90 RBC 4.46 Hgb 14.1 Hct 42.4 MCV 95.1 MCH 31.6 MCHC 33.3 RDW Std Deviation 47.2 H RDW Coeff of Ronaldo 13.6 Plt Count 314 MPV 9.7 Immature Gran % (Auto) 0.3 Neut % (Auto) 61.7 Lymph % (Auto) 28.8 Tripp % (Auto) 8.1 Eos % (Auto) 0.7 Baso % (Auto) 0.4 Neut # (Auto) 4.25 Lymph # (Auto) 1.99 Tripp # (Auto) 0.56 Eos # (Auto) 0.05 Baso # (Auto) 0.03 Immature Gran # (Auto) 0.02 Sodium 141 Potassium 4.0 Chloride 105 Carbon Dioxide 28 Anion Gap 8 BUN 12 Creatinine 0.80 Est Cr Clr Drug Dosing Not Reportable Est GFR ( Amer) 123.0 Est GFR (Non-Af Amer) 106.1 BUN/Creatinine Ratio 15.0 Glucose 85 Calcium 9.6 Total Bilirubin 0.4 AST 13 ALT 12 Alkaline Phosphatase 58 Total Protein 7.9 Albumin 4.4 Globulin 3.5 Albumin/Globulin Ratio 1.3 TSH 2.531 Urine Color Urine Appearance Urine pH Ur Specific Ecru Urine Protein Urine Glucose (UA) Urine Ketones Urine Blood Urine Nitrite Urine Bilirubin Urine Urobilinogen Ur Leukocyte Esterase POC Ur Test Salicylates Urine Opiates Screen Ur Methadone, Qual Acetaminophen Urine Barbiturates Ur Phencyclidine (PCP) U Amphetamin/Meth Scrn MDMA (Ecstasy) Screen U Benzodiazepines Scrn Ur Cocaine Metabolite U Marijuana (THC) Screen Ethyl Alcohol mg/dL SARS-CoV-2, RNA, NAAT 09/22/21 09/22/21 09/22/21 18:45 18:45 18:47 WBC RBC Hgb Hct MCV MCH MCHC RDW Std Deviation RDW Coeff of Ronaldo Plt Count MPV Immature Gran % (Auto) Neut % (Auto) Lymph % (Auto) Tripp % (Auto) Eos % (Auto) Baso % (Auto) Neut # (Auto) Lymph # (Auto) Tripp # (Auto) Eos # (Auto) Baso # (Auto) Immature Gran # (Auto) Sodium Potassium Chloride Carbon Dioxide Anion Gap BUN Creatinine Est Cr Clr Drug Dosing Est GFR ( Amer) Est GFR (Non-Af Amer) BUN/Creatinine Ratio Glucose Calcium Total Bilirubin AST ALT Alkaline Phosphatase Total Protein Albumin Globulin Albumin/Globulin Ratio TSH Urine Color Yellow Urine Appearance Clear Urine pH 6.5 Ur Specific Ecru 1.024 Urine Protein Negative Urine Glucose (UA) Negative Urine Ketones Negative Urine Blood Negative Urine Nitrite Negative Urine Bilirubin Negative Urine Urobilinogen Negative Ur Leukocyte Esterase Negative POC Ur Test Salicylates < 3.0 L Urine Opiates Screen Ur Methadone, Qual Acetaminophen < 3 L Urine Barbiturates Ur Phencyclidine (PCP) U Amphetamin/Meth Scrn MDMA (Ecstasy) Screen U Benzodiazepines Scrn Ur Cocaine Metabolite U Marijuana (THC) Screen Ethyl Alcohol mg/dL < 10.0 SARS-CoV-2, RNA, NAAT 09/22/21 09/22/21 09/22/21 18:47 18:47 18:47 WBC RBC Hgb Hct MCV MCH MCHC RDW Std Deviation RDW Coeff of Ronaldo Plt Count MPV Immature Gran % (Auto) Neut % (Auto) Lymph % (Auto) Tripp % (Auto) Eos % (Auto) Baso % (Auto) Neut # (Auto) Lymph # (Auto) Tripp # (Auto) Eos # (Auto) Baso # (Auto) Immature Gran # (Auto) Sodium Potassium Chloride Carbon Dioxide Anion Gap BUN Creatinine Est Cr Clr Drug Dosing Est GFR ( Amer) Est GFR (Non-Af Amer) BUN/Creatinine Ratio Glucose Calcium Total Bilirubin AST ALT Alkaline Phosphatase Total Protein Albumin Globulin Albumin/Globulin Ratio TSH Urine Color Urine Appearance Urine pH Ur Specific Ecru Urine Protein Urine Glucose (UA) Urine Ketones Urine Blood Urine Nitrite Urine Bilirubin Urine Urobilinogen Ur Leukocyte Esterase POC Ur Test NEG Salicylates Urine Opiates Screen Neg Ur Methadone, Qual Neg Acetaminophen Urine Barbiturates Neg Ur Phencyclidine (PCP) Neg U Amphetamin/Meth Scrn Neg MDMA (Ecstasy) Screen Neg U Benzodiazepines Scrn Neg Ur Cocaine Metabolite Neg U Marijuana (THC) Screen Neg Ethyl Alcohol mg/dL SARS-CoV-2, RNA, NAAT NEGATIVE Hospital Course (1) Depression with anxiety: Plan 09/26/21: Continue with current medications and tx plan. Had family meeting. Reviewed potential risks for mood elevation with SSRI if BPAD II is part of diagnostic picture but previously tolerated sertraline and discussed option for mood stabilizer in future if needed such as lamictal and she agrees she could discuss this with outpatient providers. 09/25/21: titrate Lexapro 10 mg daily. Vistaril prn for sleep effective. needs family meeting. 09/24/21: continue current medication and tx plan, titration of Lexapro likely tomorrow. 09/23/21: The patient was admitted to the [facility] ([facility] mental health unit) on q15 min checks (behavioral with suicide precautions) for safety. The patient will participate in group, recreational, and milieu therapies and will be offered additional individual and family sessions as clinically appropriate. EKG to ensure normal QTc prior to consideration for another antidepressant. Risks/benefits/alternatives reviewed re: Lexapro for depression rather than resuming and increasing Zoloft as she OD on it. Discussion included but was not limited to FDA warnings re: SI. Mental Health & Subst Abuse Tx Psychiatrist Name of Psychiatrist: Teresa Morgan PA-C Psychiatrist's Date of Appointment with Psychiatrist: 10/04/21 Time of Appointment with Psychiatrist: 2:00 PM Psychiatric Appointment Comment: [address] [place] [id number] Psychiatrist Release of Information: Obtained, Reviewed and Signed Therapist Name of Therapist: Brooklynn Thompson Therapist's Date of Therapist Appointment: 09/28/21 Time of Therapist Appointment: 8:30 AM Therapy Appointment Comment: [address] [facility], [address], [place] [address] Therapist Release of Information: Obtained, Reviewed and Signed Personal Lines Sales Rep Name of Personal Lines Sales Rep: None Post Discharge Appointments Primary Care Physician Name Of Family Doctor: Mariusz Doran Primary Care Provider Appointment Comment: Follow up with PCP as needed. Primary Care Release of Information: Obtained, Reviewed and Signed Other #1: Name of Aftercare Appointment: [facility] ([facility]) Phone Number of Aftercare Appointment: [phone] Aftercare Appointment Comment: Call to complete intake and registration for group (begins mid-Oct.) #2: Name of Aftercare Appointment: [facility] (alternate therapy option) Phone Number of Aftercare Appointment: [phone] Aftercare Appointment Comment: They will follow up with you if they can accept you for therapy. Discharge Plan Discharge Items Patient Disposition: Home - Self-Care Reason For Visit: MDD Discharge Diagnosis: Major Depressive Disorder, recurrent Activity: Resume your previous activity Non-emergency contact: Primary Care Provider, Psychiatrist and Therapist Call non-emergency contact if: you have any medication questions and your symptoms worsen Follow-up/Referrals: Deanna Doran DO [Primary Care Provider] - Diet: Regular Addtl Attending Provider Instructions: Optional mobile apps we discussed: -Suicide safety plan -Virtual Hope Box SPECIAL CARE INSTRUCTIONS: 1. Follow through with your scheduled aftercare appointments. If unable to keep an appointment, please call to reschedule. 2. Take your medication only as prescribed. Medication should not be changed or stopped without the approval of your doctor. In the event of worsening symptoms or concerns about side effects, contact your doctor immediately. 3. Utilize new healthy coping skills, anger management skills, and stress management skills learned during your hospitalization. Journal feelings and process them with a support person. Identify stressors or situations that may result in relapse, deterioration or inappropriate behaviors and develop a plan to deal with those issues. 4. If your coping skills are ineffective and you are in crisis, contact your outpatient providers for direction. If unable to reach your providers, please call the [facility] CRISIS LINE AT , go to the [facility] walk-in center at [address], [address], [place], or go to the closest Emergency Room. 5. Avoid alcohol and un-prescribed drugs. 6. You have been provided with the Mental Health Advance Directives Pamphlet for your review. 7. Your condition is stable for discharge to outpatient level of care, but recovery is an ongoing process. Ifthoughts to harm yourself or others return, follow the safety plan developed during your stay. Planning for a safe return home includes securing weapons. Our treatment team recommends weaponsbe removed from the home until your outpatient provider reassesses your progress. In rare cases where the items themselvescannot be removed, guns and ammunitionshould be secured separatelyand keys stored by a reliable personoutside of the home. If you were admitted on an involuntary commitment, the police or other legal authorities may be involved in this process. AFTERCARE APPOINTMENTS: * Please call your insurance company prior to your scheduled appointment to confirm your aftercare providers are covered. Take your insurance information to your appointments. WHO TO CALL AND WHEN: Medical Emergencies: For questions or emergencies related to your hospital stay, please contact the Inpatient Behavioral Health Unit at [phone]. A psychological science professor is on-call 29/08 for the Behavioral Health Unit for emergencies At any time you feel your situation is an emergency, you may also call 911 immediately. Pending Studies at Discharge: No Stand-Alone Forms: My [facility] Medications and DC Order Prescriptions: New escitalopram oxalate 10 mg Tablet 10 mg PO QAM 30 Days Qty: 30 0RF hydroxyzine HCl 25 mg Tablet 25 mg PO HS PRN (Reason: anxiety/insomnia ) 30 Days Qty: 30 0RF Discontinued sertraline 100 mg tablet 100 mg PO DAILY Discharge Orders: Discharge Order (Routine); Ordered 09/27/21 Ordered By: Ami Long Admission Data Admit Date/Time: 09/22/21 22:28 Attending Provider: Maria Isabel Park Admit Provider: Maria Isabel Park Primary Care Provider: Deanna Doran Other Interventions: Discharge Summary Assessment (RN) Last Done: 09/27/21 12:43 PSY Interdisciplinary Discharge Planning Last Done: 09/27/21 12:43 Coding Level of Care Code 03374 D/C day mgmt > 30 min Diagnoses Depression with anxiety F41.8 Time Spent (min) 35
== END 2021-09-27 13:10 | disposition home or self-care (01) | DRG 885 ==
LOC: ED 18:23 → 3S 22:28